=== PATIENT | male | born 1950 | race African-American/Black ===

== ENCOUNTER 2020-02-09 06:17 | Observation (INO) | payer MEDICARE, SELFPAY ==
[2020-02-09] VITALS (7 sets, daily range): BP systolic 115–167; BP diastolic 74–98; PULSE 75–106; RESP 15–22; TEMP 36.3–37.2; O2SAT 96–99; BMI 34.8; BMI 34.7
--- NOTE | 2020-02-09 06:27 | ED.VIS.GEN ---
History of Present Illness Chief Complaint: Allergic Reaction Informant: Patient Narrative: Patient stated he woke up 2 and half hours ago in the left side of his tongue was swollen. He stated getting better then when it was at the beginning. Current severity is moderate. He does not feel like his throat is swollen. He does not like his lips are swollen. He is never had this happen before. Unsure what caused this. No new medications. He is not on CLARISA inhibitor. He does take multiple medications. Is on losartan. Did take an NSAID before bed as he is having some difficulty with his rotator cuff. That was Aleve. - Past Medical History (1) Benign essential HTN Status: Chronic (2) Chronic pancreatitis Status: Chronic (3) DM2 (diabetes mellitus, type 2) Status: Chronic (4) H/O back injury Status: Chronic Comment: 40 years ago (5) H/O gastritis Status: Chronic (6) HLD (hyperlipidemia) Status: Chronic Past Medical History - Allergies and Home Meds Allergies/Adverse Reactions: Allergies No Known Allergies Allergy (Verified 02/09/20 06:23) Primary Care Physician: Ramírez Ledesma MD [Primary Care Provider] - Surgical History: no surgical history Lives: With Family Smoking Status: Former smoker Alcohol: None Drugs: None Review of Systems General: Denies: Chills, Fever, Sweats Eyes: Denies: Visual changes - bilaterally, Diplopia ENT: Reports: - - See HPI. Denies: Rhinorrhea, Sore throat Cardiovascular: Denies: Chest pain, Palpitations Respiratory: Denies: Dyspnea, Cough, Dyspnea on exertion Gastrointestinal: Denies: Abdominal pain, Nausea, Vomiting, Diarrhea, Melena, Hematochezia Genitourinary: Denies: Dysuria, Hematuria, Frequency Musculoskeletal: Denies: Back pain, Extremity Pain Skin: Denies: Rash, Wounds Neurological: Denies: Headache, Weakness, Numbness Physical Exam Vital Signs/Narrative: Vital Signs Temp Pulse Resp BP Pulse Ox 02/09/20 06:17 97.3 F L 91 18 167/98 H 98 General: Well nourished, Well developed, No Acute Distress Head: Normocephalic, Atraumatic Eyes: Perrl, EOMI ENT: Moist mucous membranes, No rhinorrhea, - - She has some swelling to his tongue mainly on the left side moderate in severity. She feels like the right side of his tongue is not swollen. His lips are nonswollen. Back of his throat is normal. Swallow reflex is normal. Lymphadenopathy or neck swelling. Neck: Supple, Nontender Cardiovascular: Regular rate, Regular rhythm, No murmurs Respiratory: No distress, CTA bilaterally, Chest nontender Abdomen: Soft, Nontender, Nondistended, Normal bowel sounds Back: Nontender, Normal Inspection Extremities: Nontender, No edema Skin: Normal color, No rash Neurological: Alert, Oriented x3, Cranial nerves II-XII grossly intact, Normal Strength, Normal Sensation Psychological: Normal affect, Normal Mood Diagnostic/Tx/Re-eval - Medical Decision Making he appears to be having angioedema. Given a dose of Benadryl, Solu-Medrol, Pepcid and IV fluids. Lab work obtained. Lab work is unremarkable including CBC and BMP patient remained stable in the department with no progression of left-sided tongue swelling. Due to the nature of the significant swelling I feel he will need to be admitted to the hospital for close monitoring. At this time he does not have any airway compromise. He is swallowing his secretions. I do not feel he needs emergent elective intubation. There is no history of hereditary angioedema therefore I would not give him treatment for this at this time. I do not feel he needs epinephrine. Will be admitted and monitored - Critical Care Time Critical care time (excluding procedures): 30-74 minutes ED Disposition - Plan for ED Patient: Disposition: Acute Care Hospital [facility] Diagnosis: Angioedema
[2020-02-09] MEDS: DiphenhydrAMINE 50 MG/ML Syringe 25 MG IV (06:33)
[2020-02-09] MEDS: 0.9% Normal Saline 1,000 ML 150 ML IV (06:34)
[2020-02-09] MEDS: MethylPREDNISolone 125 MG/2 ML Vial IV (06:34)
[2020-02-09 06:35] LABS: Absolute Lymphocyte Count 2.02 X10^3/uL (0.83-4.51); Basophil# 0.03 X10^3/uL; Basophil% 0.3 % (0-1); Eosinophil# 0.05 X10^3/uL; Eosinophils% 0.5 % (0-5); Hematocrit 49.5 % (40-54); Hemoglobin 15.7 g/dL (13.0-16.5); Lymphocyte # 2.02 X10^3/ul (4.0); Lymphocyte % 20.6 % (19-41); Mean Corp Hgb Conc 31.7 g/dL (32-36); Mean Corpuscular Hgb 25.7 pg (27.0-32.0); Mean Corpuscular Volume 81.1 fL (80-94); Mean Platelet Vol. 10.5 fl (6.2-12.0); Monocyte# 0.69 X10^3/uL; NRBC Flagged by Analyzer 0 % (0-5); Neutrophil # 6.99 X10^3/uL (2.7-7.7); Neutrophil % 71.3 % (47-70); Platelet Count 220 K/mm3 (150-450); RBC Distribution Width CV 13.7 % (11.6-14.6); RBC Distribution Width SD 39.4 fl (35.1-43.9); White Blood Count 9.8 K/mm3 (4.4-11.0)
[2020-02-09] MEDS: Famotidine 200 MG/20 ML MDV 20 MG in 0.9% Normal Saline (Pres. free 8 ML 300 MG IV (06:36)
[2020-02-09 06:57] LABS: Anion Gap 5 (5-15); BUN 12 mg/dL (7-18); BUN/Creat Ratio 11.7 RATIO (10-20); Calcium,Total 8.7 mg/dL (8.5-10.1); Chloride 104 mmol/L (98-107); Creatinine, Serum 1.03 mg/dL (0.70-1.30); EST Glomerular Filtration Rate 76 mL/min (>60); Est Glom Filt Rate - Afr Amer 92 mL/min (>60); Estimated Creatinine Clearance 69.89 ml/min; Glucose 131 mg/dL (74-106); Potassium 3.6 mmol/L (3.5-5.1); Sodium Level 138 mmol/L (136-145)
--- NOTE | 2020-02-09 08:16 | HP.PCM_ITS ---
Problem List (1) Angioedema Status: Acute (2) HLD (hyperlipidemia) Status: Chronic (3) H/O gastritis Status: Chronic (4) H/O back injury Status: Chronic Comment: 40 years ago (5) DM2 (diabetes mellitus, type 2) Status: Chronic (6) Chronic pancreatitis Status: Chronic (7) Benign essential HTN Status: Chronic History of Present Illness Date of Admission: 02/09/20 Chief Complaint: tongue swelling The patient is a 69 year old M with swelling on the left side of his tongue. Woke him around 4 AM. Presented to the emergency room and was diagnosed with angioedema. Denies any history of angioedema in the past. Patient in the emergency room, received 25 mg of diphenhydramine, 20 mg of famotidine and 125 mg of methylprednisolone. Patient does state that his tongue is feeling slightly better at this time. He denies any shortness of breath. [] Past Medical History Past Medical History (Chronic Problems): Chronic Problems HLD (hyperlipidemia) (Chronic) H/O gastritis (Chronic) H/O back injury (Chronic) 40 years ago DM2 (diabetes mellitus, type 2) (Chronic) Chronic pancreatitis (Chronic) Benign essential HTN (Chronic) Allergies losartan Allergy (Severe, Verified 02/09/20 08:13) Angioedema Home Medications: Ambulatory Orders Medication Instructions Recorded Ergocalciferol [Vitamin D] unit PO DAILY 02/09/20 Levothyroxine [Synthroid] 150 mcg PO DAILY 02/09/20 Losartan Potassium 50 mg PO DAILY 02/09/20 Metformin HCl 500 mg PO DAILY 02/09/20 Multivit-Min/FA/Lycopen/Lutein 1 ea PO DAILY 02/09/20 [Centrum Silver Tablet] Pravastatin [Pravachol] 40 mg PO QHS 02/09/20 Surgical History: no surgical history Lives: With Family Smoking Status: Former smoker Alcohol: None Drugs: None - *Family History Maternal History Items: - - Of hereditary angioedema Review of Systems Constitutional: Denies: Anorexia, Chills, Fever, Night Sweats Eyes: Denies: Blurred vision, Double vision HEENT: Reports: - - tongue swelling. Denies: Head Aches, Sinus Congestion, Sinus Drainage Cardiovascular: Denies: Chest Pain, Palpitations Respiratory: Denies: Cough, Shortness of breath at rest, Sputum production Gastrointestinal: Denies: Abdominal Pain, Nausea, Vomiting Genitourinary: Denies: Dysuria Musculoskeletal: Denies: Joint Pain, Joint Tenderness Skin: Denies: Dryness, Jaundice Neurological: Denies: Numbness, Tingling, Focal weakness Psychiatric: Denies: Anxiety, Depression Hematologic/ Lymphatic: Denies: Easy Bruising, Easy Bleeding VTE Information - Inpt Only VTE Present on Admission: No VTE Mechan Device Prophylaxis: None VTE Pharm Prophylaxis ordered?: No Reason prophylaxis not ordered:: Treatment Not Indicated Patient Problems: Active and Suspected Problems Angioedema (Acute) - Physical Exam Vitals/I&O's: Vital Signs Temp Pulse Resp BP Pulse Ox 36.6 C 81 18 131/74 H 99 02/09/20 08:10 02/09/20 08:10 02/09/20 08:10 02/09/20 08:10 02/09/20 08:10 Oxygen Delivery Method Room Air Weight: 110.1 kg Body Mass Index (BMI) 34.8 General: Alert, No apparent distress HEENT: Atraumatic, Normocephalic, - - swelling of tongue noted throughout. Mallampati score IV Neck: No Nodes, Thyroid Normal Size and Texture Lungs: Clear to auscultation, Normal air movement, No rhonchi, No wheeze Cardiovascular: Regular rate, Regular Rhythm, Normal S1, Normal S2, No murmurs Abdomen: Bowel Sounds Present, Soft, Non Tender, Non-Distended Extremities: No edema, No Calf Tenderness Neurological: - - no clonus. sensation intact. Psych/Mental Status: Normal Affect, Appropriate Laboratory Results 02/09/20 06:20: WBC 9.8, RBC 6.10, Hgb 15.7, Hct 49.5, MCV 81.1, MCH 25.7 L, MCHC 31.7 L, RDW Std Deviation 39.4, RDW Coeff of Duyen 13.7, Plt Count 220, MPV 10.5, Immature Gran % (Auto) 0.300, Neut % (Auto) 71.3 H, Lymph % (Auto) 20.6, [place] % (Auto) 7.0, Eos % (Auto) 0.5, Baso % (Auto) 0.3, Absolute Neuts (auto) 7.0, Absolute Lymphs (auto) 2.02, Nucleated RBC % 0 02/09/20 06:20: Sodium 138, Potassium 3.6, Chloride 104, Carbon Dioxide 29.0, Anion Gap 5, BUN 12, Creatinine 1.03, Estim Creat Clear Calc 69.89, Est GFR (MDRD) Af Amer 92, Est GFR (MDRD) Non-Af 76, BUN/Creatinine Ratio 11.7, Glucose 131 H, Calcium 8.7 Current Medications Sodium Chloride () 1,000 mls @ 150 mls/hr IV .[id number] [facility] Last Admin: 02/09/20 06:34 Dose: 150 mls/hr Documented by: Assessment/Plan All Active Problems Angioedema (Acute) 1. angioedema * likely 2/2 losartan. Patient advised of this and instructed to never take this (nor ARBs) ever again. Additionally, he should not take CLARISA- given the risk of angioedema that could occur with this. * no evidence of airway compromise as able to maintain his sats * continue with methylprednisolone, diphenhydramine and famotidine * will reevaluate later today. If improved, could be discharged later today or tomorrow. * would continue, upon discharge, prednisone, Diphendydramine and famotidine. 2. HTN * up slightly * no ARB nor CLARISA- * consider HCTZ, but would defer as outpt. 3. DM2 * hold metformin for now * SSI 4. VTE prophylaxis: low risk--not indicated.
[2020-02-09] MEDS: DiphenhydrAMINE 50 MG/ML Syringe IV (11:11)
[2020-02-09] MEDS: 0.9% Saline Lock 10 ML Syringe IV ×2 (11:11→15:04)
--- NOTE | 2020-02-09 14:55 | PCM.DC ---
- Discharge Diagnoses Current Active Problems: Current Active and Chronic Problems Angioedema (Acute) You will use the following diet at home:: No restrictions Call your doctor if you observe: Shortness of breath, - - facial, lip or tongue swelling. hives Additional Instructions: Do not ever take losartan again or any medication in the classes of angiotensive receptor blocks (ARBs) or CLARISA inhibitors due to angioedema as it could reccur and be more severe. You blood sugars will be higher while on prednisone. They should return to normal after prednisone is completed. Allergies/Adverse Reactions: Allergies CLARISA Inhibitors Allergy (Severe, Verified 02/09/20 14:58) Angioedema ARB-Angiotensin Receptor Antagonist Allergy (Severe, Verified 02/09/20 14:58) Angioedema losartan Allergy (Severe, Verified 02/09/20 08:13) Angioedema Medications to take at Discharge DiphenhydrAMINE [Benadryl] 50 mg PO TID PRN PRN #1 capsule 02/09/20 Ergocalciferol [Vitamin D] 50,000 unit PO DAILY 02/09/20 Famotidine [Pepcid] 20 mg PO BID #10 tab 02/09/20 Levothyroxine [Synthroid] 150 mcg PO DAILY 02/09/20 Metformin HCl 500 mg PO DAILY 02/09/20 Multivit-Min/FA/Lycopen/Lutein [Centrum Silver Tablet] 1 ea PO DAILY 02/09/20 Pravastatin [Pravachol] 40 mg PO QHS 02/09/20 Prednisone 4 tab PO DAILY #20 tab 02/09/20 The following prescriptions were given: DiphenhydrAMINE [Benadryl] 50 mg PO TID PRN PRN #1 capsule PRN Reason: facial swelling, hives. Famotidine [Pepcid] 20 mg PO BID #10 tab Transmission Status: Pending to [id number] Prednisone 4 tab PO DAILY #20 tab Transmission Status: Pending to [id number] Primary Care Physician: Michael Le MD [Primary Care Provider] - Within 1 Week Test Results: Test results from this visit will be discussed in further detail at your follow-up appointment, if applicable. Proposed Discharge Date: 02/09/20
--- NOTE | 2020-02-09 14:59 | PCM.DC.SUM ---
Discharge Date and Diagnosis - Problem List Patient Problems: Active and Suspected Problems Angioedema (Acute) Date of Admission: 02/09/20 Date of Discharge: 02/09/20 - Primary Discharge Diagnosis Acute Problems: Active Problems Angioedema (Acute) - Secondary Discharge Diagnosis Chronic Problems: Chronic Problems HLD (hyperlipidemia) (Chronic) H/O gastritis (Chronic) H/O back injury (Chronic) 40 years ago DM2 (diabetes mellitus, type 2) (Chronic) Chronic pancreatitis (Chronic) Benign essential HTN (Chronic) Hospital Course and Treatment Operations: None Procedures: None Summary of Care Provided: The patient is a 69 year old M presents with left-sided tongue swelling. This occurred around 4 AM this morning position presented to the emergency room. Patient was found to have angioedema likely due to losartan. Patient, in the emergency room, received methylprednisolone, famotidine and diphenhydramine. By time I saw the patient later in the morning he was actually doing better. Went to reevaluate the patient later and his tongue was almost back to normal. Patient is having no respiratory distress. Discussed with the patient that this is likely due to losartan and advised patient to never take that medication again and to avoid any ARB's and CLARISA inhibitor's as her may be some cross-reactivity with angioedema with CLARISA inhibitor's. Patient will be on a 5-day course of famotidine and prednisone. Patient advised to return if he has any other symptoms concerning for angioedema. There is no family history of angioedema and patient has never had angioedema previously so the likelihood of this being hereditary angioedema is extremely low. [] Patient Problems: Active and Suspected Problems Angioedema (Acute) - Physical Exam Vitals/I&O's: Vital Signs Temp Pulse Resp BP Pulse Ox 37.2 C 106 H 15 132/86 H 96 02/09/20 09:08 02/09/20 11:59 02/09/20 09:08 02/09/20 09:08 02/09/20 09:08 Oxygen Flow Rate (L/min) 2 Oxygen Delivery Method Nasal Cannula Weight: 109.6 kg Body Mass Index (BMI) 34.7 Intake and Output for Last 24 Hours 02/07/20 02/08/20 02/09/20 23:59 23:59 23:59 Intake Total 1180 / 1180 Balance 1180 / 1180 Laboratory Results 02/09/20 06:20: WBC 9.8, RBC 6.10, Hgb 15.7, Hct 49.5, MCV 81.1, MCH 25.7 L, MCHC 31.7 L, RDW Std Deviation 39.4, RDW Coeff of [place]uyen 13.7, Plt Count 220, MPV 10.5, Immature Gran % (Auto) 0.300, Neut % (Auto) 71.3 H, Lymph % (Auto) 20.6, [place] % (Auto) 7.0, Eos % (Auto) 0.5, Baso % (Auto) 0.3, Absolute Neuts (auto) 7.0, Absolute Lymphs (auto) 2.02, Nucleated RBC % 0 02/09/20 06:20: Sodium 138, Potassium 3.6, Chloride 104, Carbon Dioxide 29.0, Anion Gap 5, BUN 12, Creatinine 1.03, Estim Creat Clear Calc 69.89, Est GFR (MDRD) Af Amer 92, Est GFR (MDRD) Non-Af 76, BUN/Creatinine Ratio 11.7, Glucose 131 H, Calcium 8.7 Current Medications Acetaminophen (Tylenol) 650 mg PO Q6H PRN PRN PRN Reason: Pain Score 1-10/Temp > 100.7 F Diphenhydramine HCl (Benadryl) 50 mg IV Q6H [facility] Last Admin: 02/09/20 11:11 Dose: 50 mg Documented by: Famotidine 20 mg/ Sodium (Chloride) 10 mls @ 300 mls/hr IV Q12H [facility] Levothyroxine Sodium (Synthroid) 150 mcg PO DAILY@0600 [facility] Methylprednisolone (Solu-Medrol) 40 mg IV Q8 LYIDA Ondansetron HCl (Zofran) 4 mg IV Q8H PRN PRN PRN Reason: NAUSEA/VOMITING Sodium Chloride () 10 - 40 ml IV UD PRN PRN Reason: SALINE FLUSH Last Admin: 02/09/20 11:11 Dose: 20 ml Documented by: Discharge Diet: No Restrictions Discharge Activity: Return to Normal Activity Call your doctor if you observe: Shortness of breath, - - facial, lip or tongue swelling. hives Home Medications: Medications to take at Discharge DiphenhydrAMINE [Benadryl] 50 mg PO TID PRN PRN #1 capsule 02/09/20 Ergocalciferol [Vitamin D] 50,000 unit PO DAILY 02/09/20 Famotidine [Pepcid] 20 mg PO BID #10 tab 02/09/20 Levothyroxine [Synthroid] 150 mcg PO DAILY 02/09/20 Metformin HCl 500 mg PO DAILY 02/09/20 Multivit-Min/FA/Lycopen/Lutein [Centrum Silver Tablet] 1 ea PO DAILY 02/09/20 Pravastatin [Pravachol] 40 mg PO QHS 02/09/20 Prednisone 4 tab PO DAILY #20 tab 02/09/20 Following Prescriptions Were Given to Patient: DiphenhydrAMINE [Benadryl] 50 mg PO TID PRN PRN #1 capsule PRN Reason: facial swelling, hives. Famotidine [Pepcid] 20 mg PO BID #10 tab Transmission Status: Pending to [id number] Prednisone 4 tab PO DAILY #20 tab Transmission Status: Pending to [id number] Primary Care Physician: Michael Le MD [Primary Care Provider] - Within 1 Week Disposition: Home Minutes spent on discharge:: 35 Patient Condition:: Good Medical Necessity - Tobacco Use Smoking Status: Former smoker Meaningful Use Info Meaningful Use Diagnoses (Choose all that apply): None applicable OBSV E&M: 09516 Observ/hosp same date L3
== END 2020-02-09 14:58 | disposition home or self-care (01) ==
LOC: ED 07:12 → PCU 09:28
PROVIDERS: Emergency Provider Emergency Medicine; PCP Family Medicine
DX: T78.3XXA Angioneurotic edema, initial encounter (principal); T50.905A Adverse effect of unspecified drugs, medicaments and biological substances, initial encounter; I10 Essential (primary) hypertension; E11.9 Type 2 diabetes mellitus without complications; E78.5 Hyperlipidemia, unspecified; Z23 Encounter for immunization; K86.1 Other chronic pancreatitis; Z87.891 Personal history of nicotine dependence; Z79.899 Other long term (current) drug therapy
CPT/HCPCS: 80048; 85025; 96361; 96374; 96375; 96376; 99218; 99284; G0008; J7030; 90686; A4216; G0378; J3490

== ENCOUNTER 2023-04-30 21:01 | Emergency (ER) | payer MEDICARE, SELFPAY ==
[2023-04-30 21:02] VITALS: BP 115/69; PULSE 53; RESP 16; TEMP 36.6; O2SAT 99
--- NOTE | 2023-04-30 22:10 | ED.RN ---
Pt wanted his bp retaken,117/76. Pt states he feels better and LWBS.
== END 2023-04-30 22:11 | disposition left against medical advice (07) ==
LOC: ED 22:18
PROVIDERS: PCP Family Medicine
DX: Z53.21 Procedure and treatment not carried out due to patient leaving prior to being seen by health care provider (principal)

== ENCOUNTER → 2023-09-03 | Outpatient (CLI) | payer OTHER, SELFPAY ==
[2023-09-03 12:19] LABS: International Normalized Ratio 1.1; Prothrombin Time (Protime)PT. 13.8 SECONDS (11.7-14.9)
[2023-09-03 12:20] LABS: Partial Thromboplast Time 30.1 Seconds (24.1-36.2)
[2023-09-03 12:42] LABS: Anion Gap 5 (5-15); BUN 13 mg/dL (7-18); BUN/Creat Ratio 11.9 RATIO (10-20); Calcium,Total 8.7 mg/dL (8.5-10.1); Chloride 104 mmol/L (98-107); Creatinine, Serum 1.09 mg/dL (0.70-1.30); EST Glomerular Filtration Rate 70 mL/min (>60); Est Glom Filt Rate - Afr Amer 85 mL/min (>60); Glucose 121 mg/dL (74-106); Sodium Level 139 mmol/L (136-145)
[2023-09-03 13:49] LABS: Absolute Lymphocyte Count 1.34 X10^3/uL (0.83-4.51); Absolute Neutrophil Count 4.4 X10^3/uL (2.0-7.7); Basophil# 0.03 X10^3/uL; Basophil% 0.5 % (0-1); Eosinophil# 0.09 X10^3/uL; Eosinophils% 1.4 % (0-5); Hematocrit 49.1 % (40-54); Hemoglobin 15.5 g/dL (13.0-16.5); Lymphocyte # 1.34 X10^3/ul (0.83-4.51); Lymphocyte % 20.8 % (19-41); Mean Corp Hgb Conc 31.6 g/dL (32-36); Mean Corpuscular Hgb 25.6 pg (27.0-32.0); Mean Platelet Vol. 10.5 fl (6.2-12.0); Monocyte# 0.53 X10^3/uL; Monocyte% 8.2 % (0-10); NRBC Flagged by Analyzer 0 % (0-5); Neutrophil # 4.42 X10^3/uL (2.7-7.7); Neutrophil % 68.8 % (47-70); Platelet Count 235 K/mm3 (150-450); RBC Distribution Width CV 13.2 % (11.6-14.6); RBC Distribution Width SD 38.8 fl (35.1-43.9); Red Blood Count 6.06 M/mm3 (4.6-6.2); White Blood Count 6.4 K/mm3 (4.4-11.0)
== END | disposition home or self-care (01) ==
LOC: LAB 11:35
PROVIDERS: PCP Family Medicine; Referring Provider Physician Assistant Medical; Visit Provider Physician Assistant Medical
DX: R94.39 Abnormal result of other cardiovascular function study (principal); I25.10 Atherosclerotic heart disease of native coronary artery without angina pectoris
CPT/HCPCS: 36415; 80048; 85025; 85610; 85730

== ENCOUNTER 2023-09-16 07:33 | Day surgery (SDC) | payer MEDICARE, SELFPAY ==
[2023-09-15 10:52] VITALS: BMI 33.7
--- NOTE | 2023-09-16 11:18 | CL.D_ITS ---
Patient Name: SHAYLA YI Study Date: 09/16/2023 Performing: Kalia Camarena MD Ht: 70 inches 177.8 cm : 1950 Wt: 234.99 lbs 106.59 kg Age: 73 Gender: male BSA: 2.24 PROCEDURE(S) PERFORMED [id number])[facility] CLINICAL PROFILE AND INDICATIONS Indications: Stable Known CAD Heart Failure: None Stress/Imaging Stress Test w/SPECT MPI: Yes Result: Positive Intermediate RiskStress Test with SPECT MPI: Positive Intermediate Risk CAD Presentations: Other: Dyspnea on exertion CONCLUSIONS 60% Mid LAD calcified; 80% ostial D2 (small 1.5 mm vessel) Midl disease RCA/LCX RECOMMENDATIONS Medical therapy Risk factor modification DESCRIPTION OF PROCEDURE The patient arrived to the procedure lab. The risks and benefits of the procedure as well as a full description of our services here and current unavailability of surgical backup were fully explained to the patient and/or their significant other prior to the catheterization. The Timeout was completed, verifying the correct patient and procedure. The patient's procedural site was prepped and draped in the usual fashion. Local anesthetic was given subcutaneously to right radial region with Lidocaine 2%. Using a modified Seldinger technique, arterial access was obtained via the right radial artery, a 6Fr sheath was inserted. Left Coronary Artery selective angiography was performed in multiple views using a 5 Fr. 4.0 [place] catheter. Right Coronary Artery selective angiography was then performed in multiple views using a 5 Fr. 4.0 [place] catheter.The arterial sheath was pulled and a Starclose closure device was deployed for hemostasis 10 ml of air CORONARY ANGIOGRAPHY DOMINANCE: Right Dominant LEFT ANTERIOR DESCENDING ARTERY: LAD: Calcified 60% Mid lesion in LAD DIAGONAL 2: Tubular 80% Ostial lesion in DIAG2 RAMUS: Tubular 35% Mid lesion in Ramus RIGHT CORONARY ARTERY: RCA: Tubular 40% Proximal lesion in RCA COMPLICATIONS No Complications PROCEDURE MEDICATIONS Fentanyl 50 mcg IV Versed 1 mg IV Versed 2 mg IV Fentanyl 50 mcg IV Oxygen: via nasal cannula Heparin given IA 09/16/2023 10:58:49 Verapamil 2.5mg, Ntg 200mcgs, 2000 units of Heparin given IA 09/16/2023 10:58:49 IV Bolus: .9 NaCl 250 ml total 09/16/2023 11:00:33 SUMMARY OF HEMODYNAMIC DATA Time AIR REST ECG 07:58:32 AO 108/77 (91) SA 11:01:09 AO 122/81 (100) 11:01:21 AO 117/73 (91) 11:04:57 Signed By Kalia Camarena MD On 09/16/2023 11:17:35 Kalia Camarena MD
== END 2023-09-16 12:35 | disposition home or self-care (01) ==
PROVIDERS: PCP Family Medicine; Referring Provider Internal Medicine Cardiovascular Disease; Visit Provider Internal Medicine Cardiovascular Disease
DX: I25.10 Atherosclerotic heart disease of native coronary artery without angina pectoris (principal); E11.9 Type 2 diabetes mellitus without complications; I10 Essential (primary) hypertension; R94.31 Abnormal electrocardiogram [ECG] [EKG]; Z87.891 Personal history of nicotine dependence; E78.5 Hyperlipidemia, unspecified; Z79.899 Other long term (current) drug therapy; R94.39 Abnormal result of other cardiovascular function study
CPT/HCPCS: 93454; 99152; 99153; J7040; Q9967; C1769; C1894

== ENCOUNTER 2023-12-15 12:36 | Inpatient (IN) | payer MEDICARE, SELFPAY ==
[2023-12-15] VITALS (10 sets, daily range): BP systolic 105–137; BP diastolic 66–79; PULSE 80–99; RESP 16–25; TEMP 36.1–37.2; O2SAT 94–96; BMI 31.5
[2023-12-15] MEDS: Ipratropium/Albuterol Sulfate 3 ML AMPUL.NEB INHALATION ×2 (13:01→17:00)
[2023-12-15] MEDS: 0.9% Normal Saline (500mL Bag) 500 ML 1000 ML IV (13:06)
[2023-12-15 13:18] LABS: Absolute Lymphocyte Count 0.68 X10^3/uL (0.83-4.51); Absolute Neutrophil Count 25.2 X10^3/uL (2.0-7.7); Basophil# 0.11 X10^3/uL; Basophil% 0.4 % (0-1); Hemoglobin 15.6 g/dL (13.0-16.5); Lymphocyte # 0.68 X10^3/ul (0.83-4.51); Lymphocyte % 2.6 % (19-41); Mean Corp Hgb Conc 31.8 g/dL (32-36); Mean Corpuscular Hgb 25.5 pg (27.0-32.0); Mean Corpuscular Volume 80.2 fL (80-94); Monocyte# 0.21 X10^3/uL; Monocyte% 0.8 % (0-10); NRBC Flagged by Analyzer 0 % (0-5); Neutrophil # 25.24 X10^3/uL (2.7-7.7); Neutrophil % 95.4 % (47-70); POSITIVE DIFFERENTIAL YES; Platelet Count 238 K/mm3 (150-450); RBC Distribution Width CV 13.2 % (11.6-14.6); RBC Distribution Width SD 38.3 fl (35.1-43.9); Red Blood Count 6.11 M/mm3 (4.6-6.2); White Blood Count 26.5 K/mm3 (4.4-11.0)
[2023-12-15 13:21] LABS: Differential Indicated SCAN CRITERIA MET
[2023-12-15 13:28] LABS: Anion Gap 10 (5-15); BUN 13 mg/dL (7-18); BUN/Creat Ratio 9.6 RATIO (10-20); Calcium,Total 8.6 mg/dL (8.5-10.1); Chloride 101 mmol/L (98-107); Creatinine, Serum 1.36 mg/dL (0.70-1.30); EST Glomerular Filtration Rate 55 mL/min (>60); Est Glom Filt Rate - Afr Amer 66 mL/min (>60); Estimated Creatinine Clearance 57.28 ml/min; Glucose 202 mg/dL (74-106); Potassium 3.7 mmol/L (3.5-5.1); Sodium Level 138 mmol/L (136-145)
[2023-12-15 14:32] LABS: Lactic Acid 2.3 mmol/L (0.4-1.9)
[2023-12-15 14:51] LABS: Mucous, Urine 0 SEEN /hpf (<or=2+); Red Blood Cells-Urine 0 SEEN /hpf (0-5); Squamous Epithelial Cells - UA 0 SEEN /hpf (0-5)
[2023-12-15 15:04] LABS: Color, Urine Yellow (Yellow); Glucose, Dipstick Normal (Normal); Ketone-Dipstick Negative (Negative); Leukocyte Esterase-Dipstick 25 /ul (Negative); Nitrite-Dipstick Negative (Negative); Occult Blood-Urine 10 /ul (Negative); Protein-Dipstick 30 mg/dl (Negative); Urine Bilirubin Dipstick Negative (Negative); Urine Clarity Clear (Clear); Urine Urobilinogen 4 mg/dl (Normal)
[2023-12-15 15:11] LABS: Amorphous Sediment 1+; Bacteria 2+ /hpf (None Seen); White Blood Cells 0-5 SEEN /hpf (0-5)
[2023-12-15] MEDS: 0.9% Normal Saline (1000mL) 1,000 ML 100 ML IV (16:25)
[2023-12-15] MEDS: Piperacil/Tazobactam 3.375 GM in 0.9% Normal Saline (50mL MB+) 50 ML IV ×2 (16:53→22:30)
[2023-12-15 17:52] LABS: Reflex Lactate? Y
[2023-12-15 18:12] LABS: Bedside Glucose 142 mg/dL (74-106)
[2023-12-15 20:10] LABS: Lactic Acid 1.6 mmol/L (0.4-1.9)
[2023-12-15] MEDS: Tamsulosin HCl 0.4 MG Capsule PO (20:54)
[2023-12-15] MEDS: Heparin Injection (Vial) 5,000 UNIT/ML VIAL 5000 UNIT SC (20:54)
[2023-12-15] MEDS: Pravastatin 40 MG Tablet PO (20:54)
[2023-12-15] MEDS: amLODIPine 10 MG Tablet PO (22:25)
[2023-12-16] VITALS (8 sets, daily range): BP systolic 121–143; BP diastolic 77–83; PULSE 82–89; RESP 16–26; TEMP 36.7–37.4; O2SAT 93–94
[2023-12-16 00:52] LABS: Bedside Glucose 128 mg/dL (74-106)
[2023-12-16] MEDS: 0.9% Normal Saline (1000mL) 1,000 ML 100 ML IV (02:37)
[2023-12-16] MEDS: Piperacil/Tazobactam 3.375 GM in 0.9% Normal Saline (50mL MB+) 50 ML IV ×3 (05:49→20:45)
[2023-12-16] MEDS: Levothyroxine 150 MCG Tablet PO (05:49)
[2023-12-16 06:03] LABS: Absolute Lymphocyte Count 1.23 X10^3/uL (0.83-4.51); Absolute Neutrophil Count 24.7 X10^3/uL (2.0-7.7); Basophil# 0.06 X10^3/uL; Basophil% 0.2 % (0-1); Eosinophil# 0.02 X10^3/uL; Eosinophils% 0.1 % (0-5); Hematocrit 42.5 % (40-54); Hemoglobin 13.7 g/dL (13.0-16.5); Lymphocyte # 1.23 X10^3/ul (0.83-4.51); Lymphocyte % 4.4 % (19-41); Mean Corp Hgb Conc 32.2 g/dL (32-36); Mean Corpuscular Volume 80.6 fL (80-94); Mean Platelet Vol. 10.5 fl (6.2-12.0); Monocyte# 1.47 X10^3/uL; Monocyte% 5.3 % (0-10); NRBC Flagged by Analyzer 0 % (0-5); Neutrophil # 24.67 X10^3/uL (2.7-7.7); Neutrophil % 88.8 % (47-70); POSITIVE DIFFERENTIAL YES; Platelet Count 203 K/mm3 (150-450); RBC Distribution Width CV 13.3 % (11.6-14.6); RBC Distribution Width SD 38.5 fl (35.1-43.9); Red Blood Count 5.27 M/mm3 (4.6-6.2); White Blood Count 27.8 K/mm3 (4.4-11.0)
[2023-12-16 06:09] LABS: Bedside Glucose 132 mg/dL (74-106)
[2023-12-16 06:23] LABS: Differential Indicated SCAN CRITERIA MET
[2023-12-16 06:34] LABS: Anion Gap 9 (5-15); BUN 13 mg/dL (7-18); BUN/Creat Ratio 12.9 RATIO (10-20); Calcium,Total 8.1 mg/dL (8.5-10.1); Chloride 103 mmol/L (98-107); Creatinine, Serum 1.01 mg/dL (0.70-1.30); EST Glomerular Filtration Rate 77 mL/min (>60); Est Glom Filt Rate - Afr Amer 93 mL/min (>60); Estimated Creatinine Clearance 77.13 ml/min; Glucose 136 mg/dL (74-106); Sodium Level 138 mmol/L (136-145)
[2023-12-16] MEDS: Ipratropium/Albuterol Sulfate 3 ML AMPUL.NEB INHALATION ×3 (07:00→19:43)
[2023-12-16 08:24] LABS: Phosphorus 3.4 mg/dL (2.5-4.9)
[2023-12-16] MEDS: Lactated Ringers 1,000 ML 75 ML IV ×2 (10:30→20:46)
[2023-12-16] MEDS: Potassium Chloride Oral Tablet 20 MEQ 40 MEQ PO (10:41)
[2023-12-16] MEDS: Tamsulosin HCl 0.4 MG Capsule PO (10:42)
[2023-12-16] MEDS: amLODIPine 10 MG Tablet PO (10:42)
[2023-12-16] MEDS: Metoprolol Tartrate 50 MG Tablet PO (10:42)
[2023-12-16] MEDS: Heparin Injection (Vial) 5,000 UNIT/ML VIAL 5000 UNIT SC (10:43)
[2023-12-16] MEDS: Aspirin E.C. 81 MG Tablet PO (10:44)
[2023-12-16 13:49] LABS: Bedside Glucose 140 mg/dL (74-106)
[2023-12-16] MEDS: 0.9% Saline Lock 10 ML Syringe IV (15:06)
[2023-12-16] MEDS: 0.9% Normal Saline (250mL Bag) 250 ML 15 ML IV (15:14)
[2023-12-16 18:16] LABS: Bedside Glucose 100 mg/dL (74-106)
[2023-12-16] MEDS: Pravastatin 40 MG Tablet PO (20:45)
[2023-12-17] VITALS (10 sets, daily range): BP systolic 123–141; BP diastolic 76–87; PULSE 79–96; RESP 16–24; TEMP 36.8–37.1; O2SAT 91–96
[2023-12-17 00:57] LABS: Bedside Glucose 106 mg/dL (74-106)
[2023-12-17] MEDS: Ipratropium/Albuterol Sulfate 3 ML AMPUL.NEB INHALATION ×4 (01:55→20:00)
[2023-12-17] MEDS: Levothyroxine 150 MCG Tablet PO (05:31)
[2023-12-17] MEDS: Piperacil/Tazobactam 3.375 GM in 0.9% Normal Saline (50mL MB+) 50 ML IV ×3 (05:31→20:32)
[2023-12-17 05:54] LABS: Bedside Glucose 109 mg/dL (74-106)
[2023-12-17 07:20] LABS: Hematocrit 41.5 % (40-54); Hemoglobin 13.4 g/dL (13.0-16.5); Mean Corp Hgb Conc 32.3 g/dL (32-36); Mean Corpuscular Hgb 25.5 pg (27.0-32.0); Mean Platelet Vol. 10.7 fl (6.2-12.0); Platelet Count 213 K/mm3 (150-450); RBC Distribution Width CV 13.2 % (11.6-14.6); RBC Distribution Width SD 37.7 fl (35.1-43.9); Red Blood Count 5.25 M/mm3 (4.6-6.2); White Blood Count 21.1 K/mm3 (4.4-11.0)
[2023-12-17] MEDS: Tamsulosin HCl 0.4 MG Capsule PO (08:04)
[2023-12-17] MEDS: Metoprolol Tartrate 50 MG Tablet PO (08:04)
[2023-12-17] MEDS: Aspirin E.C. 81 MG Tablet PO (08:04)
[2023-12-17] MEDS: amLODIPine 10 MG Tablet PO (08:05)
[2023-12-17] MEDS: Enoxaparin 40 MG/0.4 ML Syringe SC (08:42)
[2023-12-17 10:57] LABS: Anion Gap 9 (5-15); BUN 10 mg/dL (7-18); BUN/Creat Ratio 11.1 RATIO (10-20); Chloride 109 mmol/L (98-107); EST Glomerular Filtration Rate 88 mL/min (>60); Est Glom Filt Rate - Afr Amer 107 mL/min (>60); Estimated Creatinine Clearance 86.56 ml/min; Glucose 112 mg/dL (74-106); Potassium 3.3 mmol/L (3.5-5.1); Sodium Level 142 mmol/L (136-145)
[2023-12-17 11:38] LABS: Bedside Glucose 147 mg/dL (74-106)
[2023-12-17] MEDS: 0.9% Saline Lock 10 ML Syringe IV ×3 (14:30→14:31)
[2023-12-17 16:39] LABS: Bedside Glucose 140 mg/dL (74-106)
[2023-12-17] MEDS: Pravastatin 40 MG Tablet PO (20:32)
[2023-12-17] MEDS: Acetaminophen 325 MG Tablet 650 MG PO (23:05)
[2023-12-17 23:20] LABS: Bedside Glucose 151 mg/dL (74-106)
[2023-12-18] MEDS: Piperacil/Tazobactam 3.375 GM in 0.9% Normal Saline (50mL MB+) 50 ML IV (05:09)
[2023-12-18] MEDS: Levothyroxine 150 MCG Tablet PO (05:09)
[2023-12-18 05:15] VITALS: BP 154/93; PULSE 77; RESP 16; TEMP 36.6; O2SAT 95
[2023-12-18 06:47] LABS: Absolute Lymphocyte Count 1.14 X10^3/uL (0.83-4.51); Absolute Neutrophil Count 9.3 X10^3/uL (2.0-7.7); Basophil# 0.04 X10^3/uL; Basophil% 0.3 % (0-1); Eosinophil# 0.15 X10^3/uL; Eosinophils% 1.3 % (0-5); Hematocrit 43.1 % (40-54); Hemoglobin 13.7 g/dL (13.0-16.5); Lymphocyte # 1.14 X10^3/ul (0.83-4.51); Lymphocyte % 9.8 % (19-41); Mean Corp Hgb Conc 31.8 g/dL (32-36); Mean Corpuscular Hgb 25.2 pg (27.0-32.0); Mean Corpuscular Volume 79.4 fL (80-94); Mean Platelet Vol. 10.6 fl (6.2-12.0); Monocyte% 6.9 % (0-10); NRBC Flagged by Analyzer 0 % (0-5); Neutrophil # 9.27 X10^3/uL (2.7-7.7); Neutrophil % 79.9 % (47-70); Platelet Count 224 K/mm3 (150-450); RBC Distribution Width CV 13.2 % (11.6-14.6); RBC Distribution Width SD 37.6 fl (35.1-43.9); Red Blood Count 5.43 M/mm3 (4.6-6.2); White Blood Count 11.6 K/mm3 (4.4-11.0)
[2023-12-18] MEDS: Ipratropium/Albuterol Sulfate 3 ML AMPUL.NEB INHALATION ×2 (07:01→13:08)
[2023-12-18 07:02] VITALS: PULSE 89; RESP 16; O2SAT 93
[2023-12-18 07:16] LABS: Bedside Glucose 102 mg/dL (74-106)
[2023-12-18 07:49] VITALS: PULSE 77
[2023-12-18] MEDS: Metoprolol Tartrate 50 MG Tablet PO (07:49)
[2023-12-18] MEDS: Tamsulosin HCl 0.4 MG Capsule PO (07:49)
[2023-12-18] MEDS: Aspirin E.C. 81 MG Tablet PO (07:49)
[2023-12-18] MEDS: amLODIPine 10 MG Tablet PO (07:49)
[2023-12-18] MEDS: Enoxaparin 40 MG/0.4 ML Syringe SC (07:50)
[2023-12-18 07:54] LABS: Anion Gap 7 (5-15); BUN 7 mg/dL (7-18); BUN/Creat Ratio 8.2 RATIO (10-20); Calcium,Total 8.4 mg/dL (8.5-10.1); Chloride 105 mmol/L (98-107); Creatinine, Serum 0.85 mg/dL (0.70-1.30); EST Glomerular Filtration Rate 93 mL/min (>60); Est Glom Filt Rate - Afr Amer 113 mL/min (>60); Estimated Creatinine Clearance 91.65 ml/min; Glucose 118 mg/dL (74-106); Lipase 35 U/L (13-75); Potassium 3.3 mmol/L (3.5-5.1); Sodium Level 141 mmol/L (136-145)
[2023-12-18] MEDS: Amox/Clavulanate 875 MG Tablet PO (10:57)
[2023-12-18 11:26] LABS: Bedside Glucose 104 mg/dL (74-106)
[2023-12-18] MEDS: Mag /Aluminum/Simeth WCH UDC 30 ML ORAL.SUSP PO (12:22)
[2023-12-18] MEDS: Lidocaine 2% Viscous15 ML UDC 15 ML PO (12:22)
[2023-12-18 13:09] VITALS: PULSE 80; RESP 18
[2023-12-18 13:54] VITALS: BP 129/76; PULSE 78; RESP 18; TEMP 36.9; O2SAT 94
== END 2023-12-18 15:39 | disposition home or self-care (01) | DRG 392 ==
LOC: ED 13:31 → MS3 15:05
PROVIDERS: Hospitalist; Surgery; Admitting Provider Internal Medicine; Emergency Provider Emergency Medicine; PCP Family Medicine; Visit Provider Family Medicine
DX: K57.20 Diverticulitis of large intestine with perforation and abscess without bleeding (principal); N13.8 Other obstructive and reflux uropathy; E11.9 Type 2 diabetes mellitus without complications; J44.9 Chronic obstructive pulmonary disease, unspecified; I10 Essential (primary) hypertension; E89.0 Postprocedural hypothyroidism; Z68.31 Body mass index [BMI] 31.0-31.9, adult; I25.10 Atherosclerotic heart disease of native coronary artery without angina pectoris; E78.5 Hyperlipidemia, unspecified; E87.6 Hypokalemia; Z87.891 Personal history of nicotine dependence; Z79.84 Long term (current) use of oral hypoglycemic drugs; E66.9 Obesity, unspecified; N40.1 Benign prostatic hyperplasia with lower urinary tract symptoms; Z79.899 Other long term (current) drug therapy; Z79.82 Long term (current) use of aspirin; Z96.612 Presence of left artificial shoulder joint
CPT/HCPCS: 36415; 71046; 74177; 80048; 81001; 82962; 83605; 83690; 83735; 84100; 85025; 85027; 87040; 87077; 87086; 87088; 87149; 93005; 94640; 99284; J7030; J7040; J7050; J7120; Q9967; A4216